=== PATIENT | female | born 1935 | race African-American/Black ===

== ENCOUNTER 2022-10-01 14:07 | Inpatient (IN) ==
[2022-10-01 15:20] LABS: Basophils % 0.3 % (0.0-0.8); Hematocrit 41.2 VOL% (35.7-47.0); Hemoglobin 12.8 GM/DL (12.0-16.0); Immature Granulocytes % 0.3 %; Immature Granulocytes Absolute 0.01 #; Lymphocytes % 24.1 % (21.3-54.2); Mean Corpuscular HGB Conc 31.1 GM/DL (32-36); Mean Corpuscular Volume 92.2 FL (87-102); Mean Platelet Volume 9.1 FL (9.6-12.0); Monocytes # 0.6 10*3/uL (0.11-0.8); Monocytes % 13.8 % (1.7-12.7); Neutrophils % 61.5 % (38.7-73.9); Platelet Count 250 T/CUMM (130-400); Red Blood Count 4.47 MC/CUMM (3.8-5.5); Red Cell Distribution Width 13.9 % (9.3-17.3)
[2022-10-01 15:38] LABS: Albumin 3.5 G/DL (3.4-5.0); Bilirubin,Total 0.5 MG/DL (0.20-1.00); Calcium 9.2 MG/DL (8.5-10.1); Osmolality,Calculated 267.2 MOS/KG (273-304); Potassium 3.9 MMOL/L (3.5-5.1); Total Protein 7.1 G/DL (6.4-8.2)
[2022-10-01] MEDS: PIPERACILLIN/TAZOBACTAM 3,375 MG in SODIUM CHLORIDE 0.9% 100 ML IV SCH ×2 (16:25→23:39)
[2022-10-01] MEDS ORDERED: ONDANSETRON 4 MG/2 ML VIAL IV PRN (23:37)
[2022-10-01] MEDS ORDERED: ALUMINUM/MAGNES/SIMETH MAX STR 30 ML UDCUP PO PRN (23:38)
[2022-10-02 05:59] LABS: Hematocrit 44.4 VOL% (35.7-47.0); Immature Granulocytes % 0.4 %; Immature Granulocytes Absolute 0.02 #; Lymphocytes # 0.6 10*3/uL (1.4-4.0); Lymphocytes % 14.1 % (21.3-54.2); Mean Corpuscular HGB Conc 31.5 GM/DL (32-36); Mean Corpuscular Volume 91.4 FL (87-102); Mean Platelet Volume 9.5 FL (9.6-12.0); Monocytes # 0.3 10*3/uL (0.11-0.8); Monocytes % 7.4 % (1.7-12.7); Neutrophils % 78.1 % (38.7-73.9); Platelet Count 304 T/CUMM (130-400); Red Blood Count 4.86 MC/CUMM (3.8-5.5); Red Cell Distribution Width 13.9 % (9.3-17.3); White Blood Count 4.5 T/CUMM (4-12)
[2022-10-02 06:08] LABS: PT Patient Result 10.6 SECS (10.1-12.1)
[2022-10-02 06:22] LABS: Albumin 3.7 G/DL (3.4-5.0); Bilirubin,Total 0.6 MG/DL (0.20-1.00); Calcium 9.8 MG/DL (8.5-10.1); Osmolality,Calculated 273.1 MOS/KG (273-304); Potassium 3.9 MMOL/L (3.5-5.1); Total Protein 7.6 G/DL (6.4-8.2)
[2022-10-02 06:50] LABS: Cancer Antigen 19-9 668.42 U/ML (0-35); Carcinoembryonic Antigen 4.3 NG/ML (0.0-5.0)
[2022-10-02] MEDS: ONDANSETRON 4 MG/2 ML VIAL IV PRN (10:49)
[2022-10-02] MEDS: PANTOPRAZOLE 40 MG VIAL IV SCH (10:50)
[2022-10-02] MEDS: PIPERACILLIN/TAZOBACTAM 3,375 MG in SODIUM CHLORIDE 0.9% 100 ML IV SCH ×3 (10:50→23:30)
[2022-10-02] MEDS: LACTATED RINGERS 1,000 ML IV SCH (10:51)
[2022-10-02 13:13] LABS: Amylase,Body Fluid 22 U/L; LDH,Body Fluid 171 U/L; Total Protein,Body Fluid 4.5 G/DL; Triglycerides,Body Fluid 17 MG/DL
[2022-10-02 13:26] LABS: Lymphocytes,Pleural Fluid 66 %; Monocytes,Pleural Fluid 30 %; Neutrophils,Pleural Fluid 4 %; RBC,Pleural Fluid 398 T/CUMM
[2022-10-03 05:33] LABS: Basophils % 0.3 % (0.0-0.8); Eosinophils % 0.3 % (0.00-10.9); Hematocrit 39.8 VOL% (35.7-47.0); Hemoglobin 12.4 GM/DL (12.0-16.0); Immature Granulocytes % 0.3 %; Immature Granulocytes Absolute 0.01 #; Lymphocytes # 0.9 10*3/uL (1.4-4.0); Lymphocytes % 23.6 % (21.3-54.2); Mean Corpuscular HGB Conc 31.2 GM/DL (32-36); Mean Corpuscular Volume 90.2 FL (87-102); Mean Platelet Volume 9.6 FL (9.6-12.0); Monocytes # 0.4 10*3/uL (0.11-0.8); Monocytes % 11.4 % (1.7-12.7); Neutrophils % 64.1 % (38.7-73.9); Platelet Count 269 T/CUMM (130-400); Red Blood Count 4.41 MC/CUMM (3.8-5.5); White Blood Count 3.9 T/CUMM (4-12)
[2022-10-03 05:45] LABS: Calcium 8.9 MG/DL (8.5-10.1); Osmolality,Calculated 284.1 MOS/KG (273-304); Potassium 3.9 MMOL/L (3.5-5.1)
[2022-10-03] MEDS: PANTOPRAZOLE 40 MG VIAL IV SCH (09:00)
[2022-10-03] MEDS: PIPERACILLIN/TAZOBACTAM 3,375 MG in SODIUM CHLORIDE 0.9% 100 ML IV SCH ×3 (09:00→23:47)
[2022-10-03] MEDS: LACTATED RINGERS 1,000 ML IV SCH (13:44)
[2022-10-03] MEDS: KETOROLAC 15 MG/1 ML VIAL IV PRN (23:48)
[2022-10-03] MEDS: ONDANSETRON 4 MG/2 ML VIAL IV PRN (23:53)
[2022-10-04 06:48] LABS: Basophils % 0.3 % (0.0-0.8); Hematocrit 39.1 VOL% (35.7-47.0); Immature Granulocytes % 0.3 %; Immature Granulocytes Absolute 0.01 #; Lymphocytes # 1.3 10*3/uL (1.4-4.0); Lymphocytes % 32.2 % (21.3-54.2); Mean Corpuscular HGB Conc 30.7 GM/DL (32-36); Mean Corpuscular Volume 92.4 FL (87-102); Mean Platelet Volume 9.8 FL (9.6-12.0); Monocytes # 0.5 10*3/uL (0.11-0.8); Monocytes % 12.6 % (1.7-12.7); Neutrophils % 53.6 % (38.7-73.9); Platelet Count 212 T/CUMM (130-400); Red Blood Count 4.23 MC/CUMM (3.8-5.5); Red Cell Distribution Width 14.1 % (9.3-17.3); White Blood Count 3.9 T/CUMM (4-12)
[2022-10-04 07:02] LABS: Calcium 8.3 MG/DL (8.5-10.1); Osmolality,Calculated 284.8 MOS/KG (273-304); Potassium 3.6 MMOL/L (3.5-5.1)
[2022-10-04] MEDS: PANTOPRAZOLE 40 MG VIAL IV SCH (09:26)
[2022-10-04] MEDS: PIPERACILLIN/TAZOBACTAM 3,375 MG in SODIUM CHLORIDE 0.9% 100 ML IV SCH ×2 (09:26→17:09)
[2022-10-04] MEDS: LACTATED RINGERS 1,000 ML IV SCH ×2 (17:10→23:39)
[2022-10-04] MEDS: ONDANSETRON 4 MG/2 ML VIAL IV PRN ×2 (18:28→22:46)
[2022-10-04] MEDS: KETOROLAC 15 MG/1 ML VIAL IV PRN (22:46)
[2022-10-05] MEDS: PIPERACILLIN/TAZOBACTAM 3,375 MG in SODIUM CHLORIDE 0.9% 100 ML IV SCH ×3 (00:33→16:14)
[2022-10-05 05:55] LABS: Basophils % 0.3 % (0.0-0.8); Hematocrit 39.6 VOL% (35.7-47.0); Hemoglobin 12.5 GM/DL (12.0-16.0); Immature Granulocytes % 0.3 %; Immature Granulocytes Absolute 0.01 #; Lymphocytes # 0.9 10*3/uL (1.4-4.0); Lymphocytes % 22.3 % (21.3-54.2); Mean Corpuscular HGB Conc 31.6 GM/DL (32-36); Mean Platelet Volume 9.4 FL (9.6-12.0); Monocytes # 0.4 10*3/uL (0.11-0.8); Monocytes % 10.8 % (1.7-12.7); Neutrophils % 65.3 % (38.7-73.9); Platelet Count 198 T/CUMM (130-400); Red Blood Count 4.26 MC/CUMM (3.8-5.5); Red Cell Distribution Width 13.9 % (9.3-17.3); White Blood Count 3.9 T/CUMM (4-12)
[2022-10-05 06:11] LABS: Calcium 8.4 MG/DL (8.5-10.1); Osmolality,Calculated 282.1 MOS/KG (273-304); Potassium 3.6 MMOL/L (3.5-5.1)
[2022-10-05] MEDS: PANTOPRAZOLE 40 MG VIAL IV SCH (09:07)
[2022-10-05] MEDS: KETOROLAC 15 MG/1 ML VIAL IV PRN (20:41)
[2022-10-05] MEDS: ONDANSETRON 4 MG/2 ML VIAL IV PRN (20:44)
[2022-10-06] MEDS: LACTATED RINGERS 1,000 ML IV SCH (00:10)
[2022-10-06] MEDS: PIPERACILLIN/TAZOBACTAM 3,375 MG in SODIUM CHLORIDE 0.9% 100 ML IV SCH ×3 (00:10→17:09)
[2022-10-06] MEDS: PANTOPRAZOLE 40 MG VIAL IV SCH (09:03)
[2022-10-06] MEDS: KETOROLAC 15 MG/1 ML VIAL IV PRN (11:56)
[2022-10-06] MEDS: ONDANSETRON 4 MG/2 ML VIAL IV PRN (22:13)
[2022-10-07] MEDS: PIPERACILLIN/TAZOBACTAM 3,375 MG in SODIUM CHLORIDE 0.9% 100 ML IV SCH ×2 (02:26→10:11)
[2022-10-07] MEDS: ONDANSETRON 4 MG/2 ML VIAL IV PRN (02:27)
[2022-10-07] MEDS: KETOROLAC 15 MG/1 ML VIAL IV PRN (02:27)
[2022-10-07 05:55] LABS: Basophils % 0.2 % (0.0-0.8); Eosinophils # 0.1 10*3/uL (0.0-0.87); Hematocrit 39.3 VOL% (35.7-47.0); Hemoglobin 12.2 GM/DL (12.0-16.0); Immature Granulocytes % 0.4 %; Immature Granulocytes Absolute 0.02 #; Lymphocytes # 1.1 10*3/uL (1.4-4.0); Lymphocytes % 20.9 % (21.3-54.2); Monocytes # 0.5 10*3/uL (0.11-0.8); Monocytes % 8.6 % (1.7-12.7); Neutrophils % 68.9 % (38.7-73.9); Platelet Count 213 T/CUMM (130-400); Red Blood Count 4.27 MC/CUMM (3.8-5.5); Red Cell Distribution Width 13.7 % (9.3-17.3); White Blood Count 5.3 T/CUMM (4-12)
[2022-10-07 06:24] LABS: Calcium 8.5 MG/DL (8.5-10.1); Osmolality,Calculated 281.3 MOS/KG (273-304); Potassium 3.1 MMOL/L (3.5-5.1)
[2022-10-07] MEDS: LACTATED RINGERS 1,000 ML IV SCH ×2 (10:10→19:19)
[2022-10-07] MEDS: PANTOPRAZOLE 40 MG VIAL IV SCH (10:10)
[2022-10-08 05:42] LABS: Eosinophils # 0.1 10*3/uL (0.0-0.87); Eosinophils % 1.7 % (0.00-10.9); Hemoglobin 12.1 GM/DL (12.0-16.0); Immature Granulocytes % 0.4 %; Immature Granulocytes Absolute 0.02 #; Lymphocytes % 19.6 % (21.3-54.2); Mean Corpuscular Volume 91.5 FL (87-102); Mean Platelet Volume 9.7 FL (9.6-12.0); Monocytes # 0.5 10*3/uL (0.11-0.8); Monocytes % 9.8 % (1.7-12.7); Neutrophils % 68.5 % (38.7-73.9); Platelet Count 204 T/CUMM (130-400); Red Blood Count 4.26 MC/CUMM (3.8-5.5); Red Cell Distribution Width 13.9 % (9.3-17.3); White Blood Count 5.2 T/CUMM (4-12)
[2022-10-08 06:13] LABS: Albumin 2.6 G/DL (3.4-5.0); Bilirubin,Total 0.4 MG/DL (0.20-1.00); Calcium 8.4 MG/DL (8.5-10.1); Osmolality,Calculated 283.8 MOS/KG (273-304); Total Protein 5.9 G/DL (6.4-8.2)
[2022-10-08] MEDS: POTASSIUM CHLORIDE RIDER 10 MEQ/100 ML PREMIX IV PRN ×5 (06:48→11:31)
[2022-10-08] MEDS: PANTOPRAZOLE 40 MG VIAL IV SCH (08:28)
[2022-10-08] MEDS: LACTATED RINGERS 1,000 ML IV SCH ×3 (08:30→15:40)
[2022-10-08] MEDS ORDERED: ROCURONIUM 50 MG/5 ML VIAL IV ONE (12:09)
[2022-10-08] MEDS ORDERED: SUCCINYLCHOLINE 200 MG/10 ML VIAL ONE (12:09)
[2022-10-08] MEDS ORDERED: LIDOCAINE 2% 5 ML VIAL ONE (12:09)
[2022-10-08] MEDS ORDERED: DEXAMETHASONE 4 MG/1 ML VIAL ONE (12:09)
[2022-10-08] MEDS ORDERED: fentaNYL 100 MCG/2 ML VIAL ONE (12:09)
[2022-10-08] MEDS ORDERED: ETOMIDATE 40 MG/20 ML VIAL IV ONE (12:09)
[2022-10-08] MEDS ORDERED: ONDANSETRON 4 MG/2 ML VIAL ONE (12:09)
[2022-10-08] MEDS ORDERED: propofoL 200 MG/20 ML VIAL IV ONE (12:09)
[2022-10-08] MEDS ORDERED: BUPIVACAINE MPF 0.25% 30 ML VIAL ONE (12:16)
[2022-10-08] MEDS ORDERED: LIDOCAINE 1% 5 ML VIAL ONE (12:16)
[2022-10-08] MEDS ORDERED: ALBUMIN 5% 25.0 GM/500 ML VIAL IV ONE (13:38)
[2022-10-08] MEDS ORDERED: GLYCOPYRROLATE 0.4 MG/2 ML VIAL ONE (14:12)
[2022-10-08] MEDS ORDERED: NEOSTIGMINE 10 MG/10 ML VIAL ONE (14:12)
[2022-10-08] MEDS ORDERED: LACTATED RINGERS 1,000 ML IV ONE (14:15)
[2022-10-08] MEDS ORDERED: ONDANSETRON 4 MG/2 ML VIAL IV PRN (14:52)
[2022-10-08 14:53] LABS: Mucus,Urine Occasional /LPF (Occasional); RBC,Urine 1 /HPF (0-4); Squamous Epithelial Cell,Urine Occasional /HPF (0-10)
[2022-10-08 14:54] LABS: Bilirubin,Urine Negative (Negative); Blood, Urine Trace mg/dL (Negative); Glucose,Urine (UA) Negative (Negative); Ketones,Urine 15 mg/dL (Negative); Nitrite,Urine Negative (Negative); Protein,Urine Negative (Negative); Urine Appearance Clear (Clear); Urine Color Yellow (Yellow); Urine Specific Gravity 1.015 (1.001-1.035); Urine Urobilinogen 0.2 eU/dL (<2.0)
[2022-10-08] MEDS: HYDROmorphone 1 MG/1 ML SYRINGE IV PRN ×2 (14:55→15:10)
[2022-10-08] MEDS ORDERED: HYDROmorphone 1 MG/1 ML SYRINGE IV PRN (15:48)
[2022-10-08 16:32] LABS: Basophils % 0.2 % (0.0-0.8); Eosinophils # 0.1 10*3/uL (0.0-0.87); Eosinophils % 0.9 % (0.00-10.9); Hematocrit 39.7 VOL% (35.7-47.0); Hemoglobin 12.4 GM/DL (12.0-16.0); Immature Granulocytes % 0.6 %; Immature Granulocytes Absolute 0.06 #; Lymphocytes # 2.1 10*3/uL (1.4-4.0); Lymphocytes % 21.5 % (21.3-54.2); Mean Corpuscular HGB Conc 31.2 GM/DL (32-36); Mean Corpuscular Volume 92.1 FL (87-102); Mean Platelet Volume 9.7 FL (9.6-12.0); Monocytes # 0.6 10*3/uL (0.11-0.8); Neutrophils % 70.8 % (38.7-73.9); Platelet Count 242 T/CUMM (130-400); Red Blood Count 4.31 MC/CUMM (3.8-5.5); Red Cell Distribution Width 13.6 % (9.3-17.3); White Blood Count 9.9 T/CUMM (4-12)
[2022-10-08] MEDS: KETOROLAC 15 MG/1 ML VIAL IV SCH ×2 (16:46→21:41)
[2022-10-08 16:47] LABS: Calcium 7.9 MG/DL (8.5-10.1); Osmolality,Calculated 277.3 MOS/KG (273-304); Potassium 3.5 MMOL/L (3.5-5.1)
[2022-10-08] MEDS ORDERED: MAGNESIUM SULF RIDER 4 GM/100 ML PREMIX IV PRN (16:57)
[2022-10-08] MEDS ORDERED: MAGNESIUM SULF RIDER 2 GM/50 ML PREMIX IV PRN (16:57)
[2022-10-09] MEDS: LACTATED RINGERS 1,000 ML IV SCH ×2 (02:31→15:00)
[2022-10-09] MEDS: KETOROLAC 15 MG/1 ML VIAL IV SCH ×4 (03:29→22:39)
[2022-10-09 05:05] LABS: Eosinophils # 0.1 10*3/uL (0.0-0.87); Hematocrit 38.2 VOL% (35.7-47.0); Hemoglobin 11.7 GM/DL (12.0-16.0); Immature Granulocytes % 0.3 %; Immature Granulocytes Absolute 0.02 #; Lymphocytes # 0.9 10*3/uL (1.4-4.0); Mean Corpuscular HGB Conc 30.6 GM/DL (32-36); Mean Corpuscular Volume 91.4 FL (87-102); Mean Platelet Volume 9.8 FL (9.6-12.0); Monocytes # 0.6 10*3/uL (0.11-0.8); Monocytes % 9.5 % (1.7-12.7); Neutrophils % 74.2 % (38.7-73.9); Platelet Count 233 T/CUMM (130-400); Red Blood Count 4.18 MC/CUMM (3.8-5.5); Red Cell Distribution Width 13.8 % (9.3-17.3); White Blood Count 5.9 T/CUMM (4-12)
[2022-10-09 05:21] LABS: Calcium 8.4 MG/DL (8.5-10.1); Osmolality,Calculated 278.3 MOS/KG (273-304)
[2022-10-09] MEDS: PANTOPRAZOLE 40 MG VIAL IV SCH (10:17)
[2022-10-10] MEDS: KETOROLAC 15 MG/1 ML VIAL IV SCH ×4 (04:46→22:25)
[2022-10-10] MEDS: LACTATED RINGERS 1,000 ML IV SCH ×3 (04:51→17:40)
[2022-10-10 09:19] LABS: Basophils % 0.3 % (0.0-0.8); Eosinophils # 0.1 10*3/uL (0.0-0.87); Eosinophils % 1.4 % (0.00-10.9); Hematocrit 38.1 VOL% (35.7-47.0); Immature Granulocytes % 0.3 %; Immature Granulocytes Absolute 0.02 #; Lymphocytes # 1.2 10*3/uL (1.4-4.0); Lymphocytes % 19.1 % (21.3-54.2); Mean Corpuscular HGB Conc 31.5 GM/DL (32-36); Mean Corpuscular Volume 91.8 FL (87-102); Mean Platelet Volume 9.9 FL (9.6-12.0); Monocytes # 0.6 10*3/uL (0.11-0.8); Monocytes % 9.8 % (1.7-12.7); Neutrophils % 69.1 % (38.7-73.9); Platelet Count 248 T/CUMM (130-400); Red Blood Count 4.15 MC/CUMM (3.8-5.5); Red Cell Distribution Width 14.1 % (9.3-17.3); White Blood Count 6.5 T/CUMM (4-12)
[2022-10-10 09:38] LABS: Calcium 8.3 MG/DL (8.5-10.1); Osmolality,Calculated 281.1 MOS/KG (273-304); Potassium 3.6 MMOL/L (3.5-5.1)
[2022-10-10] MEDS: PANTOPRAZOLE 40 MG VIAL IV SCH (09:46)
[2022-10-11] MEDS: KETOROLAC 15 MG/1 ML VIAL IV SCH ×4 (04:07→21:51)
[2022-10-11 05:44] LABS: Basophils % 0.4 % (0.0-0.8); Eosinophils # 0.1 10*3/uL (0.0-0.87); Eosinophils % 1.9 % (0.00-10.9); Hematocrit 39.2 VOL% (35.7-47.0); Hemoglobin 12.1 GM/DL (12.0-16.0); Immature Granulocytes % 0.8 %; Immature Granulocytes Absolute 0.04 #; Lymphocytes % 18.8 % (21.3-54.2); Mean Corpuscular HGB Conc 30.9 GM/DL (32-36); Mean Platelet Volume 9.9 FL (9.6-12.0); Monocytes # 0.5 10*3/uL (0.11-0.8); Monocytes % 10.3 % (1.7-12.7); Neutrophils % 67.8 % (38.7-73.9); Platelet Count 262 T/CUMM (130-400); Red Blood Count 4.26 MC/CUMM (3.8-5.5); White Blood Count 5.2 T/CUMM (4-12)
[2022-10-11 06:00] LABS: Calcium 8.5 MG/DL (8.5-10.1); Potassium 3.6 MMOL/L (3.5-5.1)
[2022-10-11] MEDS: LACTATED RINGERS 1,000 ML IV SCH ×4 (07:44→18:40)
[2022-10-11] MEDS: PANTOPRAZOLE 40 MG VIAL IV SCH (09:13)
[2022-10-11] MEDS: POTASSIUM CHLORIDE RIDER 10 MEQ/100 ML PREMIX IV PRN ×2 (09:13→12:37)
[2022-10-11] MEDS: ONDANSETRON 4 MG/2 ML VIAL IV PRN ×2 (15:14→21:54)
[2022-10-12] MEDS: ONDANSETRON 4 MG/2 ML VIAL IV PRN ×4 (03:17→20:46)
[2022-10-12] MEDS: KETOROLAC 15 MG/1 ML VIAL IV SCH ×4 (03:19→20:45)
[2022-10-12] MEDS: LACTATED RINGERS 1,000 ML IV SCH ×3 (05:39→20:47)
[2022-10-12] MEDS: PANTOPRAZOLE 40 MG VIAL IV SCH (09:18)
[2022-10-12] MEDS ORDERED: ENOXAPARIN 40 MG/0.4 ML SYRINGE SUBCUT SCH (21:00)
[2022-10-13] MEDS: KETOROLAC 15 MG/1 ML VIAL IV SCH ×3 (03:31→14:48)
[2022-10-13] MEDS: LACTATED RINGERS 1,000 ML IV SCH ×2 (03:33→04:06)
[2022-10-13] MEDS: ONDANSETRON 4 MG/2 ML VIAL IV PRN ×2 (08:15→14:48)
[2022-10-13] MEDS: PANTOPRAZOLE 40 MG VIAL IV SCH (08:15)
[2022-10-13 16:30] VITALS: BP 135/72
== END 2022-10-13 17:26 | disposition hospice, home (50) | DRG 357 ==
LOC: N.ED 14:07 → SUATTDRO 15:58 → N.EDINP 15:58 → N.2E 16:55
PROVIDERS: ADMIT Internal Medicine; ATTEND Hospitalist